=== PATIENT | female | born 1985 | race Caucasian/White ===

== ENCOUNTER 2017-08-28 12:13 | Day surgery (SDC) | payer OTHER ==
[2017-08-28] MEDS ORDERED: PROPOFOL 20 ML ×2 (13:05→15:28)
[2017-08-28] MEDS ORDERED: MIDAZOLAM 1 MG/ML 2 ML INJ (13:05)
[2017-08-28] MEDS ORDERED: LIDOCAINE 2% (SDV) 5 ML INJ (13:05)
== END 2017-08-28 18:44 | disposition home or self-care (01) ==
LOC: GIL 12:13
DX: K21.0 Gastro-esophageal reflux disease with esophagitis (principal); K22.2 Esophageal obstruction; K44.9 Diaphragmatic hernia without obstruction or gangrene; J45.909 Unspecified asthma, uncomplicated
CPT/HCPCS: 43249; 84703; 88305; 88313

== ENCOUNTER 2018-05-01 12:09 | Day surgery (SDC) | payer OTHER ==
[2018-05-01] MEDS ORDERED: PROPOFOL 40 ML (13:40)
== END 2018-05-01 14:55 | disposition home or self-care (01) ==
LOC: GIL 12:09
DX: K22.2 Esophageal obstruction (principal); J45.909 Unspecified asthma, uncomplicated
CPT/HCPCS: 43249